=== PATIENT | female | born 1970 | race Caucasian/White ===

== ENCOUNTER 2016-07-04 16:39 | Inpatient (IN) | payer OTHER ==
[~2016-07-04] VITALS: Ht 170.2 cm; Wt 87.5 kg
--- NOTE | 2016-07-04 19:04 | DIAGNOSTIC IMAGING REPORT ---
PROCEDURE: CT ABD/PELVIS WITH CONTRAST CLINICAL INDICATION: ABDOMINAL PAIN TECHNIQUE: 125 ml of Isovue 300 were injected intravenously and axial images were obtained of the entire abdomen and pelvis with sagittal and coronal reformations. COMPARISON: None. FINDINGS: ABDOMEN: Large right and mild left pleural effusions with bibasilar compressive atelectasis. Normal heart size. Liver contour irregularity with large ascites. Portal vein is patent. Spleen measures 14.3 cm. Perigastric varices. Mild anasarca. Two large gallstones, largest 2.1 cm. Pancreas, adrenal glands and right kidney are normal. Mildly enlarged left kidney (13 cm) with delayed nephrogram and left renal hilum soft tissue mass/ cyst inflammatory process with mild left hydronephrosis. There is also a left renal vein filling defect. Normal abdominal aorta. PELVIS: Appendix not clearly identified. Normal uterus. 2.8 cm right and 1.5 cm left ovarian cysts. Normal bladder. 1.4 cm calcification between the bladder and uterus. No suspicious osseous lesions. IMPRESSION: 1. Large right and mild left pleural effusions with bibasilar compressive atelectasis 2. Cirrhosis with large ascites, splenomegaly and perigastric varices 3. Left renal hilum mass/inflammatory process with mild left hydronephrosis, delayed nephrogram and filling defect in the renal vein. Consider a transitional cell neoplasm or adenopathy with left renal vein thrombosis. 4. Cholelithiasis 5. Bilateral ovarian cyst. Recommend pelvic ultrasound 6. Results discussed with Dr. Ingram All CT scans at this facility use dose modulation, iterative reconstruction, and/or weight-based dosing when appropriate to reduce radiation dose to as low as reasonably achievable.
--- NOTE | 2016-07-04 20:23 | DIAGNOSTIC IMAGING REPORT ---
PROCEDURE: US COMPLETE PELVIC W/TRANSVAG INDICATION: Ascites. Assess ovarian mass or cyst. TECHNIQUE: Transabdominal and endovaginal tucker scale and color Doppler sonographic images of the female pelvis were obtained. COMPARISON: Comparison made to CT abdomen pelvis earlier today (07/04/2016). FINDINGS: Study is partially limited due to body habitus. TRANSABDOMINAL SCANS: Uterus is of normal size (7.1 x 3.1 x 3.6 cm). Large amount of ascites. TRANSVAGINAL SCANS: Endometrial thickness is normal (6 mm). Right ovary is of normal size (3.9 cm) with 2.5 cm cyst. Left ovary is of normal size (2.8 cm) with a 1.4 cm cyst. IMPRESSION: 1. Study partially limited due to body habitus and ascites. 2. Bilateral ovarian cysts. While these could represent simple cysts, underlying neoplastic cysts (e.g., cystadenoma, cystadenocarcinoma) are still a possibility. 3. Findings discussed with Dr. Julian Ingram.
--- NOTE | 2016-07-04 21:09 | ED ORDER SUMMARY ---
..... Patient: FABIÁN WILSON OrderSheet [facility] VisitID: [id number] [place] [address] 46y, F Registration Date/Time: 07/04/2016 ORDER SHEET Weight: 72.5 kg (stated) Allergies: None GENERAL ORDERS: CBC w Diff Urgent (17:04 07/04/2016 Vern REYES) (Ack 17:07 PWeirosa maria ER Tech1) (17:19 KPage-Kuchan R.N.) CMP Urgent (17:04 07/04/2016 Vern REYES) (Ack 17:07 PASHAeirosa maria ER Tech1) (17:19 KPamicah-Kuarashn R.N.) UA-Culture if indicated Urgent (17:04 07/04/2016 Vern REYES) (Ack 17:07 PASHAeirosa maria ER Tech1) (17:19 PWeiler ER Tech1) PT with INR Urgent (17:04 07/04/2016 Vern REYES) (Ack 17:07 PASHAeirosa maria ER Tech1) (17:20 KPage-Kuchan R.N.) BNP Urgent (17:04 07/04/2016 Vern REYES) (Ack 17:07 Tabitha ER Tech1) (17:20 KPage-Kuchan R.N.) Urine Drug Screen Urgent (17:04 07/04/2016 Vren REYES) (Ack 17:07 PWeirosa maria ER Tech1) (17:19 PWeiler ER Tech1) Urine Urgent (17:35 07/04/2016 Vern REYES) (Ack 17:40 PWeiler ER Tech1) (17:48 PWeiler ER Tech1) CT Abd/Pel w Cont (No) (see chart) Urgent (18:08 07/04/2016 Vern REYES) (Ack 18:22 PWeirosa maria ER Tech1) (18:44 PWeiler ER Tech1) US Pelvic Complete w Transvag Urgent (19:06 07/04/2016 Vern REYES) (Ack 19:08 PASHAeirosa maria ER Tech1) (21:06 [facility] ER Well Service Floorperson) MEDICATION ORDERS: IV FLUIDS: IV NS : initial bolus none -, then 250 mL/hr for 2h (NOW); Urgent (17:04 07/04/2016 Vern REYES) (17:19 Cindy Zuñiga.NFeli) Dilaudid IV 0.5 mg (HIGH ALERT MEDICATION, NOW) (21:09 07/04/2016 Cindy Zuñiga.N. verbal order read back to Vren REYES) (21:11 Cindy Carney) Zofran IV 4 mg (NOW) (21:10 07/04/2016 Cindy Zuñiga.N. verbal order read back to Vern REYES) (21:11 Cindy Zuñiga.Arlene) ORDER SHEET NOTES: [Electronically signed by Joel Salvador R.N. (22:00 07/04/2016)] [Electronically signed by Julian Ingram MD (23:30 07/04/2016)] [Electronically locked/signed by Joel Salvador R.N. (22:00 07/04/2016)]
--- NOTE | 2016-07-04 21:09 | ED CLINICAL REPORT ---
Clinical Report - Physicians/Mid Levels [facility] [address] [place] [address] 07/04/2016 16:41 Patient: FABIÁN WILSON Time Seen: 17:00. Arrived- By private vehicle. Historian- patient. HISTORY OF PRESENT ILLNESS Chief Complaint: ABDOMINAL PAIN and ABDOMINAL SWELLING. At its maximum, severity described as moderate. When seen in the E.D., severity described as moderate. Modifying factors- worsened by walking, cough and deep breaths. It is described as Pressure-like. No radiation. It is described as generalized in location. (One month of abdominal swelling, one week of increasing pain). Is still present. It was gradual in onset and has been constant. The patient has had loss of appetite. No vomiting. She has had diarrhea (soft not liquid). No additional abdominal pain. Similar symptoms previously: None. Recent medical care: Not recently seen/assessed. REVIEW OF SYSTEMS Last normal menstrual period- May 11 - too light. No contraception. No black stools or stools, hematemesis, pain with urination or urinary frequency. No bloody stools or stools, sore throat or throat or blurred vision. No chest pain, fever, double vision, ear pain or constipation. No diarrhea, nausea, vomiting or difficulty with urination. The patient has had difficulty with urination (dark). No burning or pain with urination. Last bowel movement: today. She has had a headache, cough and cough, difficulty breathing and abdominal pain. She has had difficulty breathing (hard to take a breath because of abdominal fullness.). All systems otherwise negative, except as recorded above. PAST HISTORY PCP: None Ops: None Hosp; at age 16 for "ovary problems" or PID Illness: Psoriasis,. Problems: no known problems. Additional Surgeries: no known surgeries. Medications: None. Allergies: None. SOCIAL HISTORY Former smoker. ADDITIONAL NOTES The nursing notes have been reviewed. PHYSICAL EXAM Vital Signs: 07/04/2016 16:50 BP: 144/101. HR: 99. RR: 21. O2 saturation: 95%. Temp: 97.8 F. Pain level now: 7/10. Appearance: Alert. Patient in mild distress. Eyes: Eyes normal inspection. No scleral icterus. ENT: Pharynx normal. Neck: 2 cm of JVD present at 30 degrees. (collapses on insiration). No hepatojugular reflux present. CVS: Heart sounds normal. Respiratory: No respiratory distress. Breath sounds normal. Abdomen: Mild tenderness diffusely. Bowel sounds normal. No organomegaly. No mass. Distention (marked - feels like ascites). Femoral pulses equal. (No hernias). Skin: Skin warm. Normal skin color. Extremities: Lower extremity edema. Extremities exhibit normal ROM. Neuro: No alteration in mental status. LABS, X-RAYS, AND EKG Abdominal CT: PROCEDURE: CT ABD/PELVIS WITH CONTRAST CLINICAL INDICATION: ABDOMINAL PAIN TECHNIQUE: 125 ml of Isovue 300 were injected intravenously and axial images were obtained of the entire abdomen and pelvis with sagittal and coronal reformations. COMPARISON: None. FINDINGS: ABDOMEN: Large right and mild left pleural effusions with bibasilar compressive atelectasis. Normal heart size. Liver contour irregularity with large ascites. Portal vein is patent. Spleen measures 14.3 cm. Perigastric varices. Mild anasarca. Two large gallstones, largest 2.1 cm. Pancreas, adrenal glands and right kidney are normal. Mildly enlarged left kidney (13 cm) with delayed nephrogram and left renal hilum soft tissue mass/cyst inflammatory process with mild left hydronephrosis. There is also a left renal vein filling defect. Normal abdominal aorta. PELVIS: Appendix not clearly identified. Normal uterus. 2.8 cm right and 1.5 cm left ovarian cysts. Normal bladder. 1.4 cm calcification between the bladder and uterus. No suspicious osseous lesions. IMPRESSION: 1. Large right and mild left pleural effusions with bibasilar compressive atelectasis 2. Cirrhosis with large ascites, splenomegaly and perigastric varices 3. Left renal hilum mass/inflammatory process with mild left hydronephrosis, delayed nephrogram and filling defect in the renal vein. Consider a transitional cell neoplasm or adenopathy with left renal vein thrombosis. 4. Cholelithiasis 5. Bilateral ovarian cyst. Recommend pelvic ultrasound 6. Results discussed with Dr. Ingram All CT scans at this facility use dose modulation, iterative reconstruction, and/or weight-based dosing when appropriate to reduce radiation dose to as low as reasonably achievable. Electronically Final signed by:Flex Jain MD 07/04/2016 7:03:43 PM. Abdominal Sonogram: (PROCEDURE: US COMPLETE PELVIC W/TRANSVAG INDICATION: Ascites. Assess ovarian mass or cyst. TECHNIQUE: Transabdominal and endovaginal tucker scale and color Doppler sonographic images of the female pelvis were obtained. COMPARISON: Comparison made to CT abdomen pelvis earlier today (07/04/2016). FINDINGS: Study is partially limited due to body habitus. TRANSABDOMINAL SCANS: Uterus is of normal size (7.1 x 3.1 x 3.6 cm). Large amount of ascites. TRANSVAGINAL SCANS: Endometrial thickness is normal (6 mm). Right ovary is of normal size (3.9 cm) with 2.5 cm cyst. Left ovary is of normal size (2.8 cm) with a 1.4 cm cyst. IMPRESSION: 1. Study partially limited due to body habitus and ascites. 2. Bilateral ovarian cysts. While these could represent simple cysts, underlying neoplastic cysts (e.g., cystadenoma, cystadenocarcinoma) are still a possibility. 3. Findings discussed with Dr. Julian Ingram. Electronically Final signed by:Adalid Hairston MD 07/04/2016 8:18:39 PM). The study was interpreted by the radiologist and discussed with the radiologist. Laboratory Tests: UA-Culture if indicated: (KEM: 07/04/2016 16:51) ( MsgRcvd 07/04/2016 17:59) Final results Test Result Flag Units (Reference) URINE COLOR DARK YELLOW URINE APPEARANCE CLEAR URINE GLUCOSE NEGATIVE (NEGATIVE) URINE BILIRUBIN ICTOTEST NEGATIVE (NEGATIVE) URINE KETONE TRACE (NEGATIVE) URINE SPECIFIC GRAVITY 1.025 (1.010-1.030) URINE PH 6.5 (5.0-8.0) URINE PROTEIN 3+ (NEGATIVE) URINE UROBILINOGEN 2.0 EU/dL (0.2-1.0) The urobilinogen reagent area may react with interferingsubstances known to react with Humphrey's reagent such asp-aminosalicylic acid and sulfonamides. Atypical colorreactions may be obtained in the presence of highconcentrations of p-aminobenzoic acid. The absence ofurobilinogen cannot be determined with this test. URINE NITRITE NEGATIVE (NEGATIVE) URINE BLOOD 1+ (NEGATIVE) URINE LEUK ESTERASE NEGATIVE (NEGATIVE) URINE RBC 3-5 rbc/hpf (0-1) URINE WBC 10-15 wbc/hpf (0-1) URINE EPITHELIAL CELLS 10-15 EPI/hpf (0-5) URINE BACTERIA MODERATE (2+ TO 3+) (NONE SEEN) URINE COMMENT CULTURE INDICATED 2+ MUCUS1+ AMORPHOUS5-10 Hyaline Casts/l.p.f.URINE CULTURES ARE SET-UP BASED ON THE FOLLOWING CRITERIA:POSITIVE NITRITEPOSITIVE LEUKOCYTE ESTERASEGREATER THAN 10 WHITE BLOOD CELLSMODERATE (2+) OR GREATER BACTERIA Urine: (KEM: 07/04/2016 16:51) ( [facility] 07/04/2016 17:47) Final results Test Result Flag Units (Reference) URINE NEGATIVE CBC w Diff: (KEM: 07/04/2016 17:09) ( [facility] 07/04/2016 17:30) Final results Test Result Flag Units (Reference) WHITE BLOOD COUNT 5.6 K/uL (4.5-11.5) RED BLOOD COUNT 5.18 M/uL (4.00-5.20) HEMOGLOBIN 15.6 gm/dL (12.0-16.0) HEMATOCRIT 47.0 H % (36.0-46.0) MEAN CELL VOLUME 91 fL (80-100) MEAN CORPUSCULAR HGB 30 pg (26-34) MEAN CORPUSCULAR HGB CONC 33 g/dL (31-37) RED CELL DISTRIBUTION WIDTH 13.2 % (11.6-14.8) PLATELET COUNT 213 K/uL (150-400) NEUTROPHIL % 56.5 % (50-75) LYMPH % 31.8 % (25-40) MONO % 10.8 % (3-14) EOSINOPHIL % 0.6 % (0-4) BASOPHIL % 0.3 % (0-2) PT with INR: (KEM: 07/04/2016 17:09) ( [facility] 07/04/2016 17:40) Final results Test Result Flag Units (Reference) INR 0.9 (0.8-1.2) Low Intensity Therapy: INR 1.5-2.0 PT range 18.5-23.1Mod.Intensity Therapy: INR 2.0-3.0 PT range 23.1-31.5High Intensity Therapy: INR 2.5-3.5 PT range 27.4-35.5High Intensity Therapy 2: INR 3.0-4.0 PT range 31.5-39.3 Urine Drug Screen: (KEM: 07/04/2016 16:51) ( [facility] 07/04/2016 18:00) Final results Test Result Flag Units (Reference) AMPHETAMINE/METHAMPHETAMINE POSITIVE H (NEGATIVE) BARBITURATE NEGATIVE (NEGATIVE) BENZODIAZEPINE NEGATIVE (NEGATIVE) CANNABINOID NEGATIVE (NEGATIVE) COCAINE NEGATIVE (NEGATIVE) ECSTASY NEGATIVE (NEGATIVE) METHADONE NEGATIVE (NEGATIVE) OPIATE NEGATIVE (NEGATIVE) The urine drug screen is a qualitative screening test fordrug overdose and abuse. All screen results should beconsidered as presumptive.Drugs screened for are as follows:BenzodiazepinesCocaineAmphetamines/MetamphetaminesTHC (Tetrahydrocannabinol)OpiatesBarbituratesEcstasyMethadonePositive results are unconfirmed. For confirmation, notifythe lab for the specimen to be sent to the reference lab.All confirmations must be performed by a differentmethodology.The ingestion of natural herbal and plant productscontaining Ephedra/Ephedra metabolites can produce in urineone or more substances capable of cross reacting withamphetamine/methamphetamine immunoassays. These testsprovide a preliminary result only. A more specificalternative chemical method must be used to obtain aconfirmed analytical result. BNP: (KEM: 07/04/2016 17:09) ( [facility] 07/04/2016 17:54) Final results Test Result Flag Units (Reference) B-TYPE NATRIURETIC PEPTIDE 37.8 pg/ml (5-100) CMP: (KEM: 07/04/2016 17:09) ( MsgRcvd 07/04/2016 17:47) Final results Test Result Flag Units (Reference) GLUCOSE 112 H mg/dL (70-110) BUN 9 mg/dL (7-18) CREATININE 0.7 mg/dL (0.6-1.3) Estimated GFR >60 mL/min Estimated GFR- >60 mL/min Note: Persistent reduction over 3 months in eGFR<60 mL/min/1.73 m2 defines CKD. Patients with eGFR values>=60 mL/min/1.73 m2 may also have CKD if evidence ofpersistent proteinuria. Additional information may be foundat www.kidney.org. SODIUM 141 mmol/L (136-145) POTASSIUM 4.0 mmol/L (3.5-5.1) CHLORIDE 108 H mmol/L (98-107) CARBON DIOXIDE 26 mmol/L (21-32) CALCIUM 8.3 L mg/dL (8.5-10.1) TOTAL PROTEIN 6.1 L g/dL (6.4-8.2) ALBUMIN 1.6 L g/dL (3.3-5.0) BILIRUBIN, TOTAL 0.2 mg/dL (0.0-1.0) ALKALINE PHOSPHATASE 46 U/L (46-116) AST (SGOT) 51 H U/L (15-37) ALT (SGPT) 35 U/L (12-78) . PROGRESS AND PROCEDURES Course of Care: 18:08 07/04/16. Labs back Pt has marked and new ascites. The pain if from the abdominal fluid. Given the CT liver and esophageal vein findings this could well all be from hepatic cirrhosis however this could be caused by an ovarian neoplasm. Pt has no PCP. She will need thoracentisis and diagnostic paracentesis. She needs admission for symptomatic treatment and resolve the differential diagnosis. I spoke with Dr Sanchez who has seen the patient in the ED. Disposition: Admitted. CLINICAL IMPRESSION ABDOMINAL PAIN WITH ASCITES HEPATIC CIRRHOSIS L RENAL VEIN THROMBOSIS BILATERAL OVARIAN CYSTS R PLEURAL EFFUSION. (Electronically signed by Julian Ingram MD 07/04/2016 23:30)
--- NOTE | 2016-07-04 21:09 | ED ORDER SUMMARY ---
..... Patient: FABIÁN WILSON OrderSheet [facility] VisitID: [id number] [place] [address] 46y, F Registration Date/Time: 07/04/2016 ORDER SHEET Weight: 72.5 kg (stated) Allergies: None GENERAL ORDERS: CBC w Diff Urgent (17:04 07/04/2016 Vern REYES) (Ack 17:07 PWeirosa maria ER Tech1) (17:19 KPage-Kuchan R.N.) CMP Urgent (17:04 07/04/2016 Vern REYES) (Ack 17:07 PASHAeirosa maria ER Tech1) (17:19 KPamicah-Kuarashn R.N.) UA-Culture if indicated Urgent (17:04 07/04/2016 Vern REYES) (Ack 17:07 PASHAeirosa maria ER Tech1) (17:19 PWeiler ER Tech1) PT with INR Urgent (17:04 07/04/2016 Vern REYES) (Ack 17:07 PASHAeirosa maria ER Tech1) (17:20 KPage-Kuchan R.N.) BNP Urgent (17:04 07/04/2016 Vern REYES) (Ack 17:07 Tabitha ER Tech1) (17:20 KPage-Kuchan R.N.) Urine Drug Screen Urgent (17:04 07/04/2016 Vern REYES) (Ack 17:07 PWeirosa maria ER Tech1) (17:19 PWeiler ER Tech1) Urine Urgent (17:35 07/04/2016 Vern REYES) (Ack 17:40 PWeiler ER Tech1) (17:48 PWeiler ER Tech1) CT Abd/Pel w Cont (No) (see chart) Urgent (18:08 07/04/2016 Vern REYES) (Ack 18:22 PWeirosa maria ER Tech1) (18:44 PWeiler ER Tech1) US Pelvic Complete w Transvag Urgent (19:06 07/04/2016 Vern REYES) (Ack 19:08 PASHAeirosa maria ER Tech1) (21:06 [facility] ER Vocational Nurse) MEDICATION ORDERS: IV FLUIDS: IV NS : initial bolus none -, then 250 mL/hr for 2h (NOW); Urgent (17:04 07/04/2016 Vern REYES) (17:19 Cindy Zuñiga.NFeli) Dilaudid IV 0.5 mg (HIGH ALERT MEDICATION, NOW) (21:09 07/04/2016 Cindy Zuñiga.N. verbal order read back to Vern REYES) (21:11 Cindy Carney) Zofran IV 4 mg (NOW) (21:10 07/04/2016 Cindy Zuñiga.N. verbal order read back to Vern REYES) (21:11 Cindy Zuñiga.Arlene) ORDER SHEET NOTES: [Electronically signed by Joel Salvador R.N. (22:00 07/04/2016)] [Electronically signed by Julian Ingram MD (23:30 07/04/2016)] [Electronically locked/signed by Joel Salvador R.N. (22:00 07/04/2016)]
--- NOTE | 2016-07-04 21:09 | ED NURSING NOTES ---
Clinical Report - Nurses [facility] [address] [place] [address] 07/04/2016 16:41 Patient: FABIÁN WILSON TRIAGE Triage time 16:50 Jul 04 2016. Chief Complaint: ABDOMINAL PAIN and (pt reports abd pain for 2 months with increased abd girth making it difficult to eat, drink and take a deep breath, pt also c/o bilat leg swelling that has been onging julito 1 month). Alert. No acute distress. SEPSIS SCREEN: Sepsis Screen. Negative (no infection suspected/documented). --17:02 Joel Salvador R.N. 16:50 07/04/16. BP: 144/101. HR: 99. RR: 21. O2 saturation: 95%. Temp: 97.8 F. Pain level now: 08/14. --17:02 Joel Salvador R.N. Weight: 72.5 kg stated. Height/Length: 67 inches Per Patient. BMI: 25.1. --16:56 Joel Salvador R.N. Medications None. --16:55 Joel Salvador R.N. Medication/allergy information source: the patient. --17:02 Joel Salvador R.N. Allergies None. --16:55 Joel Salvador R.N. History Arrived by private vehicle. Historian: patient. Accompanied by friend. Onset. (2 months ago). Treatment BASKET [employer]ER: (gas-x). PAST MEDICAL HX: Immunizations: status is unknown. Last normal menstrual period- over 1 month ago. SURGERY HX: No history of previous surgery. SOCIAL HX: Former smoker, end date 01/2016. No alcohol use or drug use. No infectious disease exposure. No known contact with a sick individual. ABUSE ASSESSMENT: No report of abuse. SELF HARM ASSESSMENT: A self harm assessment was performed. The patient answered "no" to the question "Do you have thoughts of harming or killing yourself?". FALL RISK ASSESSMENT: Fall risk assessment completed. No fall risk identified. NUTRITIONAL RISK ASSESSMENT: The nutritional risk assessment revealed no deficiencies. FUNCTIONAL ASSESSMENT: Functional assessment: no impairments noted. LEARNING NEEDS ASSESSMENT: The learning needs assessment revealed no barriers. SKIN INTEGRITY ASSESSMENT: Skin integrity risk assessment completed. No skin integrity risk identified. --17:02 Joel Salvador R.N. PROBLEMS: no known problems. ADDITIONAL SURGERIES: no known surgeries. Interventions ID band on patient. To treatment room. --17:02 Joel Salvador R.N. PHYSICAL ASSESSMENT Ambulatory to room. Patient gowned. GENERAL / NEURO / PSYCH: Alert. Oriented X 4. Appears in pain. HEENT: Mucous membranes are pink. CVS: Capillary refill less than 2 seconds. SKIN: Skin is warm and dry. --17:02 Joel Salvador R.N. NURSING PROGRESS NOTES Patient identifiers checked. Call light placed in reach. Side rails up. Bed placed in lowest position. Brakes of bed on. Patient ready for evaluation- chart flagged. Patient waiting for evaluation. --17:02 Joel Salvador R.N. 17:09 07/04/2016 Site #1 started via IV in the right antecubital space with an 20g angiocath; one attempt. Blood drawn: rainbow set. Labeled in the presence of the patient and sent to the lab. Saline lock flushed with 10 mL saline. --17:19 Joel Salvador R.N. 17:14 07/04/2016 Started bag #1 1000 mL IV Fluids IV NS (Saline); at 250 mL/hr via site #1 via IV pump. Allergies verified and confirmed 5 rights. IV patency established. IV site checked: no pain, redness, or swelling. IV flushed thoroughly pre- and post-medication administration. --17:19 Joel Salvador R.N. ( at bedside). --17:29 Joel Salvador R.N. ( explaining to pt lab results and plans for ct). --18:12 Joel Salvador R.N. Call light placed in reach. --18:13 Joel Salvador R.N. 18:12 07/04/16. BP: 135/92. HR: 86. RR: 17. O2 saturation: 97%. Pain level now: 08/14. --18:13 Joel Salvador R.N. 19:41 07/04/16. ( US at bedside). --20:15 Joel Salvador R.N. 21:11 07/04/2016 Dilaudid (HYDROmorphone HCl PF) IVP 0.5 mg given. via site #1. Allergies verified, confirmed 5 rights and sedative warning given to the patient. IV patency established. IV site checked: no pain, redness, or swelling. IV flushed thoroughly pre- and post-medication administration. IVP given by RN. --21:11 Joel Salvador R.N. 21:11 07/04/2016 Zofran (Ondansetron HCl) IVP 4 mg given. via site #1. Allergies verified and confirmed 5 rights. IV patency established. IV site checked: no pain, redness, or swelling. IV flushed thoroughly pre- and post-medication administration. IVP given by RN. --21:11 Joel Salvador R.N. 21:11 07/04/16. BP: 130/92. HR: 94. RR: 17. O2 saturation: 96%. Pain level now: 08/14. --21:14 Joel Salvador R.N. In/out catheterization placed. She tolerated procedure well. Checked patient name and birthdate: patient confirmed. Patient verbalized understanding. Catheterized urine collected with return of yellow-colored urine; sample sent to lab for urinalysis. Specimen labeled in the presence of the patient. ( pt tearful, c/o headache and abd pain, notified with request to give pt something for pain, v/o for dilaudid 0.5mg iv and zofran 4mg ivp.). --21:14 Joel Salvador R.N. Patient waiting for admit bed. --21:14 Joel Salvador R.N. 21:48 07/04/2016 IV Fluids IV NS Discontinued: completed upon admission. Total amount infused: 500 mL. IV patency established. IV site checked: no pain, redness, or swelling. IV flushed thoroughly. --21:58 Joel Salvador R.N. :58 07/04/2016 Dilaudid IVP Response: no adverse reaction pain is improving. Symptoms have improved the patient feels better. --21:58 Joel Salvador R.N. :58 07/04/2016 Zofran IVP Response: no adverse reaction pain is improving. Symptoms have improved the patient feels better. --:58 Joel Salvador R.N. DISPOSITION / DISCHARGE Admitted to Acute Care (21:44 Jul 04 2016). Report was given to a nurse via a phone call. Report included patient's care, treatment, medications, reviewed medication reconcilliation, and condition (including any recent changes or anticipated changes). All questions were answered. Report was acknowledged and care was transferred. (Jensen HAGAN). Patient's personal items include, bagged/tagged. --21:45 Joel Salvador R.N. Transported via stretcher by [facility]. --21:46 Joel Salvador R.N. Locked/Released at 07/04/2016 22:00 by Joel Salvador R.N.
--- NOTE | 2016-07-04 21:47 | Progress Note ---
Subjective General Admission History and Physical Examination admission to the acute care (inpatient) Patient Name: Laurel Spaulding Admission Date: 07/04/2016 Primary Care Provider: No PCP Attending Physician: Edwin Sanchez M.D. Admitting Physician: Edwin Sanchez MD] Consulting General Surgery, Dr. Pitt Code Status: Full Code Room SUBJECTIVE Historian: Patient herself Reliability: Fair Chief Complaint: Shortness of breath Abdominal fullness Expanding abdominal region with discomfort History of Present Illness: The patient is a 46-year-old white female with a unremarkable past medical history presenting to the emergency department with abdominal fullness and abdominal distention, difficulty with breathing, rapid satiety, abdominal pain. Patient was worked up for the abdominal distention through CT imaging and general examination. It was found that patient had ascites in the peritoneum along with a notable pleural effusion. Patient was seen to have multiple cysts on her ovaries. And she was also seen to have poor filling of the right renal vein. Also seen with congestion of the right kidney. Other Labs were relatively unremarkable. Recommendations are for patient to have a paracentesis along with a thoracocentesis. This will be managed as a therapeutic procedure along with evaluation of both fluid content. Patient is admitted for further workup regarding the ascites and pleural effusion. Symptomatic measures will be gained during her hospitalization. Patient is admitted to acute care medicine as an inpatient stay. PAST MEDICAL HISTORY Illnesses: 1. Psoriasis Allergies: 1. NKDA Medications: 1. OTC ibuprofen Advil Surgery: 1. no surgical recollection. Injuries: 1. No known injuries Hospitalizations: 1. Last known Hospitalization at age 15-16 in [facility] FAMILY HISTORY Parents: 1. Father history is not well known 2. Mother, history is not well known Children: 1. [children] Other significant family history: Grandmother diagnosed with breast cancer in her 60s Aunt diagnosed with breast cancer in her 40s SOCIAL HISTORY 1. Marital Status: No ; 17 year relationship with boyfriend. 2. Bahai: unknown. 3. Education: education up to hs. 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 Occupational health exposures: uknown. HABITS 1. Tobacco: Stopped smoking cigarettes 5 months ago. 2. Drugs: History of methamphetamine use last used 2 weeks ago. 3. Alcohol: Social drinking stopped alcohol use sometime ago 4. Caffeine: Unknown HEALTH SUPERVISION Item/Test no health supervision. No primary care provider for many years ADVANCED DIRECTIVES: 1. Living well: None 2. POLST: None 3. 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 Donor card: None REVIEW OF SYSTEMS Remarkable for those things stated in the history of present illness and past medical history. Review of system completed with the following notable findings : ROS Constitutional Denies: Fever, Chills. Eyes Denies: Vision Change. ENT Denies: Nasal Congestion. Respiratory Denies: Wheezing. Cardiovascular Denies: Palpitations. Musculoskeletal Denies: Back Pain. Skin Denies: Jaundice. Physical Exam Vital Signs / I&Os Vital Signs Date Time Temp Pulse Resp B/P Pulse O2 O2 Flow FiO2 Ox Delivery Rate 07/04 2214 97.9 75 19 140/94 96 Room Air General Appearance Oriented X3, Cooperative HEENT EOMI Lungs airway sounds are decreased, bilaterally. No grunting or wheeze no rales Neck Supple, No JVD Cardiovascular Regular rate and rhythm, Normal S1 and S2 Abdomen distended abdomen, tightness, tympanic. Tenderness along the upper quadrant. Fluid wave was not obtainable no demonstrative spider nevi Extremities Normal pulses Skin No Breakdown Psych/Mental Status Mood normal LAB Results Laboratory Tests 07/04 07/04 07/04 1651 1651 1709 Chemistry Plasma Sodium (136 - 145 mmol/L) 141 Plasma Potassium (3.5 - 5.1 mmol/L) 4.0 Plasma Chloride (98 - 107 mmol/L) 108 CO2 (Enzymatic) (21 - 32 mmol/L) 26 BUN (7 - 18 mg/dL) 9 Creatinine (0.6 - 1.3 mg/dL) 0.7 Est GFR ( Amer) (mL/min) >60 Est GFR (Non-Af Amer) (mL/min) >60 Glucose (70 - 110 mg/dL) 112 Plasma Calcium (8.5 - 10.1 mg/dL) 8.3 Total Bilirubin (0.0 - 1.0 mg/dL) 0.2 AST (15 - 37 U/L) 51 ALT (12 - 78 U/L) 35 Alkaline Phosphatase (46 - 116 U/L) 46 Total Protein (6.4 - 8.2 g/dL) 6.1 Albumin (3.3 - 5.0 g/dL) 1.6 Coagulation INR (0.8 - 1.2) 0.9 Hematology WBC (4.5 - 11.5 K/uL) 5.6 RBC (4.00 - 5.20 M/uL) 5.18 Hgb (12.0 - 16.0 gm/dL) 15.6 Hct (36.0 - 46.0 %) 47.0 MCV (80 - 100 fL) 91 MCH (26 - 34 pg) 30 RDW (11.6 - 14.8 %) 13.2 Neut % (Auto) (50 - 75 %) 56.5 Lymph % (Auto) (25 - 40 %) 31.8 [place] % (Auto) (3 - 14 %) 10.8 Eos % (Auto) (0 - 4 %) 0.6 Baso % (Auto) (0 - 2 %) 0.3 Plt Count, EDTA (150 - 400 K/uL) 213 PUBS MCHC (31 - 37 g/dL) 33 Toxicology Urine Opiates Screen (NEGATIVE) NEGATIVE Urine Methadone Screen (NEGATIVE) NEGATIVE Ur Barbiturates Screen (NEGATIVE) NEGATIVE U Amphetamin/Meth Scrn (NEGATIVE) POSITIVE MDMA (Ecstasy) Screen (NEGATIVE) NEGATIVE U Benzodiazepines Scrn (NEGATIVE) NEGATIVE Urine Cocaine Screen (NEGATIVE) NEGATIVE U Cannabinoids Screen (NEGATIVE) NEGATIVE Urines Urine Color DARK YELLOW Urine Appearance CLEAR Urine pH (5.0 - 8.0) 6.5 Ur Specific [place] (1.010 - 1.030) 1.025 Urine Protein (NEGATIVE) 3+ Urine Ketones (NEGATIVE) TRACE Urine Blood (NEGATIVE) 1+ Urine Nitrite (NEGATIVE) NEGATIVE Ur Bilirubin Confirm (NEGATIVE) NEGATIVE Urine Urobilinogen (0.2 - 1.0 EU/dL) 2.0 Ur Leukocyte Esterase (NEGATIVE) NEGATIVE Urine RBC (0 - 1 rbc/hpf) 3-5 Urine WBC (0 - 1 wbc/hpf) 10-15 Ur Epithelial Cells (0 - 5 EPI/hpf) 10-15 Urine Bacteria (NONE SEEN) MODERATE (2+ TO 3+) Urine Glucose (NEGATIVE) NEGATIVE Urine Test NEGATIVE Urine Comment CULTURE INDICATED 07/04 1708 Chemistry B-Natriuretic Peptide (5 - 100 pg/ml) 37.8 Microbiology Date/Time Procedure - Status Source Growth 07/04 1650 Urine Culture - RECD URINE CC Imaging US COMPLETE PELVIC W/TRANSVAG 1. Study partially limited due to body habitus and ascites. 2. Bilateral ovarian cysts. While these could represent simple cysts, underlying neoplastic cysts (e.g., cystadenoma, cystadenocarcinoma) are still a possibility. CT ABD/PELVIS WITH CONTRAST 1. Large right and mild left pleural effusions with bibasilar compressive atelectasis 2. Cirrhosis with large ascites, splenomegaly and perigastric varices 3. Left renal hilum mass/inflammatory process with mild left hydronephrosis, delayed nephrogram and filling defect in the renal vein. Consider a transitional cell neoplasm or adenopathy with left renal vein thrombosis. 4. Cholelithiasis 5. Bilateral ovarian cyst. Recommend pelvic ultrasound Assessment and Plan Problem List 1. Abdominal pain Plan There is a distended abdomen with ascites. Also notable multiple cysts in the ovaries. Other contributing causation could be the renal vein thrombosis and liver cirrhotic changes. Imaging is pending done on pelvis and abdomen. Defining etiologies unclear. Plan is to have a paracentesis; this will include evaluation of the fluid for infection, protein, glucose, cytology etc. Ascites may be consistent with the pleural effusion. On a thoracocentesis guided. Also evaluate fluid. 2. Ascites Plan Ascites in the abdomen. Etiology is not completely clear however there is a notable ovarian cyst, liver cirrhotic changes and congestion of the kidney. Paracentesis both therapeutic and diagnostic. Sodium restricted diet Optimize diuretics once diagnostic ultrasound and carotid ultrasound performed. 3. Pleural effusion, right Plan Some right pleural effusion. Etiology is unclear. Patient has a long smoking history masses not identified in the imaging. Plan on a guided thoracocentesis Evaluate for infection, protein, cholesterol, Gram stain, fluid quantity and quality, cytology. 4. Bilateral ovarian cysts Plan Ovarian cysts have been noted for multiple years. Natural history of the ovarian cyst is not clear. Needing to evaluate the ascites. 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 5. Hepatic cirrhosis Plan Cirrhotic changes in the liver No prior IVD use. He reports of light alcohol use in the past. No historical features of hepatitis. Acute hepatitis panel, ascites will be evaluated following the paracentesis. Ultrasound completed of the abdomen; occluding liver spleen and Doppler studies of the portal system. 6. Thrombosis of left renal vein Plan Etiology of the thrombosis in the renal vein is unclear. There is signs of a congested kidney Watching kidney function evaluate ascites. E&M Codes Admission: Inpt-High/[id number]
[2016-07-04 22:14] VITALS: BP 140/94
--- NOTE | 2016-07-04 23:30 | ED DISCHARGE INSTRUCTIONS ---
Patient: FABIÁN WILSON General Instructions [facility] VisitID: [id number] [address] [place] [address] 46y, F Registration Date/Time: 07/04/2016 ABDOMINAL PAIN WITH ASCITES HEPATIC CIRRHOSIS L RENAL VEIN THROMBOSIS BILATERAL OVARIAN CYSTS R PLEURAL EFFUSION. (Electronically signed by Julian Ingram MD 07/04/2016 23:30)
--- NOTE | 2016-07-04 23:30 | ED MAR SUMMARY ---
..... Medication Administration Record [facility] [address] [place] [address] Patient: FABIÁN WILSON Visit ID: [id number] 46y, F Weight: 72.5 kg Height/Length: 67 in BMI: 25.1 ALLERGIES: None Start 17:14 07/04/2016 Joel Salvador R.N., Stop 21:48 07/04/2016 Joel Salvador R.N. Medication Administered: IV NS (SALINE), Dose: IV Fluids, Rate: 250 mL/hr, Dispensed: 1000 mL bag, Site: #1 right AC. Medication Ordered: IV NS : initial bolus none -, then 250 mL/hr for 2h (NOW); Urgent. Given 21:11 07/04/2016 Joel Salvador R.N. Medication Administered: DILAUDID [IVP] (HYDROMORPHONE HCL PF), Dose: 0.5 mg IVP, Site: #1 right AC. Medication Ordered: Dilaudid IV 0.5 mg (HIGH ALERT MEDICATION, NOW). Given 21:11 07/04/2016 Joel Salvador R.N. Medication Administered: ZOFRAN [IVP] (ONDANSETRON HCL), Dose: 4 mg IVP, Site: #1 right AC. Medication Ordered: Zofran IV 4 mg (NOW).
--- NOTE | 2016-07-04 23:30 | ED MED RECONCILIATION SUMMARY ---
Patient: FABIÁN WILSON Medication Reconciliation Report [facility] VisitID: [id number] [address] [place] [address] 46y, F Registration Date/Time: 07/04/2016 Weight: 72.5 kg Height/Length: 67 in. BMI: 25.1 ALLERGIES: None The patient's Home Medications are listed below: NONE. The source(s) of the original Home Medication information: patient The following Medications were given to the patient in the Emergency Department: IV NS IV Fluids bolus 0, then 250 mL/hr, administered: 07/04/2016 5:14:00 PM Dilaudid [IVP] IVP 0.5 mg, administered: 07/04/2016 9:11:00 PM Zofran [IVP] IVP 4 mg, administered: 07/04/2016 9:11:00 PM The following Medications were prescribed to the patient: None.
--- NOTE | 2016-07-04 23:30 | ED MAR SUMMARY ---
..... Medication Administration Record [facility] [address] [place] [address] Patient: FABIÁN WILSON Visit ID: [id number] 46y, F Weight: 72.5 kg Height/Length: 67 in BMI: 25.1 ALLERGIES: None Start 17:14 07/04/2016 Joel Salvador R.N., Stop 21:48 07/04/2016 Joel Salvador R.N. Medication Administered: IV NS (SALINE), Dose: IV Fluids, Rate: 250 mL/hr, Dispensed: 1000 mL bag, Site: #1 right AC. Medication Ordered: IV NS : initial bolus none -, then 250 mL/hr for 2h (NOW); Urgent. Given 21:11 07/04/2016 Joel Salvador R.N. Medication Administered: DILAUDID [IVP] (HYDROMORPHONE HCL PF), Dose: 0.5 mg IVP, Site: #1 right AC. Medication Ordered: Dilaudid IV 0.5 mg (HIGH ALERT MEDICATION, NOW). Given 21:11 07/04/2016 Joel Salvador R.N. Medication Administered: ZOFRAN [IVP] (ONDANSETRON HCL), Dose: 4 mg IVP, Site: #1 right AC. Medication Ordered: Zofran IV 4 mg (NOW).
--- NOTE | 2016-07-04 23:30 | ED MED RECONCILIATION SUMMARY ---
Patient: FABIÁN WILSON Medication Reconciliation Report [facility] VisitID: [id number] [address] [place] [address] 46y, F Registration Date/Time: 07/04/2016 Weight: 72.5 kg Height/Length: 67 in. BMI: 25.1 ALLERGIES: None The patient's Home Medications are listed below: NONE. The source(s) of the original Home Medication information: patient The following Medications were given to the patient in the Emergency Department: IV NS IV Fluids bolus 0, then 250 mL/hr, administered: 07/04/2016 5:14:00 PM Dilaudid [IVP] IVP 0.5 mg, administered: 07/04/2016 9:11:00 PM Zofran [IVP] IVP 4 mg, administered: 07/04/2016 9:11:00 PM The following Medications were prescribed to the patient: None.
--- NOTE | 2016-07-04 23:30 | ED DISCHARGE INSTRUCTIONS ---
Patient: FABIÁN WILSON General Instructions [facility] VisitID: [id number] [address] [place] [address] 46y, F Registration Date/Time: 07/04/2016 ABDOMINAL PAIN WITH ASCITES HEPATIC CIRRHOSIS L RENAL VEIN THROMBOSIS BILATERAL OVARIAN CYSTS R PLEURAL EFFUSION. (Electronically signed by Julian Ingram MD 07/04/2016 23:30)
[2016-07-05 02:43] VITALS: BP 129/63
--- NOTE | 2016-07-05 06:44 | Progress Note ---
Subjective General Note Date: 07/05/2016 Admission Date: 07/04/2016 Hospital Day: 2 PCP: No PCP Status: Moderate guarded Advanced Directive: Full code Room: 211 46-year-old white female with a unremarkable past medical history presenting to the emergency department with abdominal fullness and abdominal distention; found to be with ascites and pleural effusion. Admitted for observation and to assess the fluid in the belly and chest. Patient did well relatively well overnight. Patient was nothing by mouth felt like she was up most of the night. Patient is not in acute distress or pain and no issues otherwise. Constitutional Denies: Chills, Sweats. Respiratory Other (shortness of breath ). Denies: SOB w/exertion. Cardiovascular Denies: Palpitations, Edema. Gastrointestinal Other (fullness). Physical Exam Vital Signs / I&Os Vital Signs Date Time Temp Pulse Resp B/P Pulse O2 O2 Flow FiO2 Ox Delivery Rate 07/05 0243 98.2 59 16 129/63 98 Room Air 07/05 0029 2.0 07/04 2326 Room Air 07/04 2214 97.9 75 19 140/94 96 Room Air I&O 07/04 0800 07/04 1600 07/05 0000 Intake Total Output Total Balance General Appearance Oriented X3, Cooperative HEENT PERRLA Lungs Clear to auscultation, Normal air movement Neck Supple, No JVD Cardiovascular Regular rate and rhythm, Normal S1 and S2 Abdomen Soft, No tenderness Skin No Breakdown Psych/Mental Status Mood normal LAB Results Laboratory Tests 07/04 07/04 07/04 1651 1651 1709 Chemistry Plasma Sodium (136 - 145 mmol/L) 141 Plasma Potassium (3.5 - 5.1 mmol/L) 4.0 Plasma Chloride (98 - 107 mmol/L) 108 CO2 (Enzymatic) (21 - 32 mmol/L) 26 BUN (7 - 18 mg/dL) 9 Creatinine (0.6 - 1.3 mg/dL) 0.7 Est GFR ( Amer) (mL/min) >60 Est GFR (Non-Af Amer) (mL/min) >60 Glucose (70 - 110 mg/dL) 112 Plasma Calcium (8.5 - 10.1 mg/dL) 8.3 Total Bilirubin (0.0 - 1.0 mg/dL) 0.2 AST (15 - 37 U/L) 51 ALT (12 - 78 U/L) 35 Alkaline Phosphatase (46 - 116 U/L) 46 Total Protein (6.4 - 8.2 g/dL) 6.1 Albumin (3.3 - 5.0 g/dL) 1.6 Coagulation INR (0.8 - 1.2) 0.9 Hematology WBC (4.5 - 11.5 K/uL) 5.6 RBC (4.00 - 5.20 M/uL) 5.18 Hgb (12.0 - 16.0 gm/dL) 15.6 Hct (36.0 - 46.0 %) 47.0 MCV (80 - 100 fL) 91 MCH (26 - 34 pg) 30 RDW (11.6 - 14.8 %) 13.2 Neut % (Auto) (50 - 75 %) 56.5 Lymph % (Auto) (25 - 40 %) 31.8 [place] % (Auto) (3 - 14 %) 10.8 Eos % (Auto) (0 - 4 %) 0.6 Baso % (Auto) (0 - 2 %) 0.3 Plt Count, EDTA (150 - 400 K/uL) 213 PUBS MCHC (31 - 37 g/dL) 33 Toxicology Urine Opiates Screen (NEGATIVE) NEGATIVE Urine Methadone Screen (NEGATIVE) NEGATIVE Ur Barbiturates Screen (NEGATIVE) NEGATIVE U Amphetamin/Meth Scrn (NEGATIVE) POSITIVE MDMA (Ecstasy) Screen (NEGATIVE) NEGATIVE U Benzodiazepines Scrn (NEGATIVE) NEGATIVE Urine Cocaine Screen (NEGATIVE) NEGATIVE U Cannabinoids Screen (NEGATIVE) NEGATIVE Urines Urine Color DARK YELLOW Urine Appearance CLEAR Urine pH (5.0 - 8.0) 6.5 Ur Specific [place] (1.010 - 1.030) 1.025 Urine Protein (NEGATIVE) 3+ Urine Ketones (NEGATIVE) TRACE Urine Blood (NEGATIVE) 1+ Urine Nitrite (NEGATIVE) NEGATIVE Ur Bilirubin Confirm (NEGATIVE) NEGATIVE Urine Urobilinogen (0.2 - 1.0 EU/dL) 2.0 Ur Leukocyte Esterase (NEGATIVE) NEGATIVE Urine RBC (0 - 1 rbc/hpf) 3-5 Urine WBC (0 - 1 wbc/hpf) 10-15 Ur Epithelial Cells (0 - 5 EPI/hpf) 10-15 Urine Bacteria (NONE SEEN) MODERATE (2+ TO 3+) Urine Glucose (NEGATIVE) NEGATIVE Urine Test NEGATIVE Urine Comment CULTURE INDICATED 07/04 07/05 07/05 7062 3800 0081 Chemistry Plasma Sodium (136 - 145 mmol/L) 140 Plasma Potassium (3.5 - 5.1 mmol/L) 4.4 Plasma Chloride (98 - 107 mmol/L) 108 CO2 (Enzymatic) (21 - 32 mmol/L) 26 BUN (7 - 18 mg/dL) 8 Creatinine (0.6 - 1.3 mg/dL) 0.6 Est GFR ( Amer) (mL/min) >60 Est GFR (Non-Af Amer) (mL/min) >60 Glucose (70 - 110 mg/dL) 109 Hemoglobin A1c % (4.5 - 6.2 %) 5.3 Plasma Calcium (8.5 - 10.1 mg/dL) 8.1 Plasma Magnesium (1.8 - 2.4 mg/dL) 1.9 Total Bilirubin (0.0 - 1.0 mg/dL) 0.3 AST (15 - 37 U/L) 45 ALT (12 - 78 U/L) 29 Alkaline Phosphatase (46 - 116 U/L) 39 B-Natriuretic Peptide (5 - 100 pg/ml) 37.8 Total Protein (6.4 - 8.2 g/dL) 5.7 Albumin (3.3 - 5.0 g/dL) 1.5 Triglycerides (30 - 200 mg/dL) 140 Cholesterol (140 - 200 mg/dL) 161 LDL Cholesterol, Calc (mg/dL) 94 HDL Cholesterol (32 - 96 mg/dL) 39 LDL/HDL Ratio 2.4 Cholesterol/HDL Ratio 4.1 Coronary Risk Interp (0.4 - 1.0) Pending Amylase (25 - 115 U/L) 55 Lipase (73 - 393 U/L) 144 Coagulation INR (0.8 - 1.2) 1.0 Hematology WBC (4.5 - 11.5 K/uL) 5.1 RBC (4.00 - 5.20 M/uL) 4.93 Hgb (12.0 - 16.0 gm/dL) 14.8 Hct (36.0 - 46.0 %) 45.1 MCV (80 - 100 fL) 92 MCH (26 - 34 pg) 30 RDW (11.6 - 14.8 %) 13.1 Neut % (Auto) (50 - 75 %) 53.7 Lymph % (Auto) (25 - 40 %) 34.5 [place] % (Auto) (3 - 14 %) 10.6 Eos % (Auto) (0 - 4 %) 0.7 Baso % (Auto) (0 - 2 %) 0.5 Plt Count, EDTA (150 - 400 K/uL) 199 PUBS MCHC (31 - 37 g/dL) 33 Microbiology Date/Time Procedure - Status Source Growth 07/05 UNK MRSA Screen - ORD NASAL 07/04 1651 Urine Culture - RECD URINE CC Assessment and Plan Problem List 1. Ascites Plan Abdominal distention with abdominal pain. Patient was taken in for ultrasound study of the liver and for paracentesis and thoracocentesis. Lymph nodes are also noted; these may need to be assessed at a different time. 2. Abdominal pain Plan Chronic persistent abdominal pain. Associated with the ascites. She will need to be on a salt restricted diet. Cirrhotic changes in the liver. 3. Thrombosis of left renal vein Plan Thrombosis of the left renal vein; not a whole lot to do with this. Likely to be collaterals. The ovary on that and is suspicious for leakage of fluid around the fallopian. 4. Hepatic cirrhosis Plan May be contributing to the ascites. Most likely the ascites is secondary to the ovarian changes. Patient's antidepressants cancer in her 40s. 5. Bilateral ovarian cysts Plan Seen with bilateral ovarian cysts. In the setting of ascitic changes in the abdominal region. Along with pain. There is a cirrhotic liver but most likely related to the ovaries. Cytology will be sent on the ascitic fluid 6. Pleural effusion, right Plan Peers with a definitive effusion on the right side. Paracentesis today Current status: Guarded moderately stable Anticipated discharge date: 1-2 days Anticipated discharge placement: Home Patient care time: Time spent in chart review, patient interview, physical exam, CPOE, and care documentation: 30 minutes Visit to patient today: 2 Complexity of care: Moderate severe E&M Codes Rounding: Inpt-High/[id number]
[2016-07-05 07:15] VITALS: BP 129/78
[2016-07-05 10:47] VITALS: BP 125/82
[2016-07-05 15:47] VITALS: BP 121/70
--- NOTE | 2016-07-05 16:42 | DIAGNOSTIC IMAGING REPORT ---
PROCEDURE: US THORACENTESIS WO TUBE-RIGHT INDICATION: Right pleural effusion. Shortness of breath. COMPARISON: Compared to CT abdomen and pelvis on 07/04/2016. TECHNIQUE: Informed consent was obtained and the patient was advised of the usual risks and complications including infection, bleeding, allergy and pneumothorax. Left lateral decubitus position. Following sterile preparation and 1% lidocaine local anesthetic, ultrasound guidance was utilized to place a 16-gauge angiocatheter in the right posterolateral thorax. 1900 ml of hemorrhagic cloudy fluid was aspirated sent for laboratory studies (Gram stain culture, cell count differential, protein, glucose, LDH, cytology). The patient tolerated the procedure reasonably well and there are no immediate complications. IMPRESSION: 1. Successful ultrasound-guided therapeutic/diagnostic right thoracentesis (1900 ml fluid).
--- NOTE | 2016-07-05 16:44 | DIAGNOSTIC IMAGING REPORT ---
PROCEDURE: US PARACENTESIS INDICATION: Ascites. Distention. COMPARISON: Comparison is made to CT abdomen pelvis on 07/04/2016. TECHNIQUE: Informed consent was obtained and the patient was advised of the usual risks and complications including infection, bleeding and allergy. Supine position. PROCEDURE/FINDINGS: Following sterile preparation and 1% lidocaine local anesthetic, ultrasound guidance was utilized to place a 16-gauge angiocatheter in right lateral abdomen. 2150 ml of pink tinged cloudy fluid was aspirated and sent for laboratory studies as requested (Gram stain culture, cell count differential, protein, glucose, LDH, cytology). The patient tolerated the procedure well and was transferred back to the floor in satisfactory condition. IMPRESSION: 1. Successful ultrasound-guided diagnostic/therapeutic paracentesis (2100 ml fluid).
--- NOTE | 2016-07-05 16:53 | DIAGNOSTIC IMAGING REPORT ---
PROCEDURE: US ABDOMEN ULTRASOUND-LIMITED INDICATION: Gallstone. Liver disease. Assess portal venous flow. TECHNIQUE: Fall scale and color Doppler sonographic images of the abdomen were obtained. COMPARISON: Comparison is made to CT abdomen and pelvis on 07/04/2016. FINDINGS: There is a large 2.6 cm gallstone with mild gallbladder wall thickening (3 mm). Common duct is normal (4 mm). There is evidence of cirrhosis of the liver with nodular surface changes. No evidence of focal abnormality. There is normal hepatopetal flow in the portal vein. There is moderate ascites. Portions of the aorta, pancreas, and right kidney are seen, and are normal. IMPRESSION: 1. Large 2.6 cm gallstone. 2. Mild gallbladder wall thickening is nonspecific and most likely due to ascites or intrinsic liver disease. 3. Cirrhosis of the liver. 4. Normal hepatopetal flow in the portal vein. 5. Moderate ascites.
[2016-07-05 18:56] VITALS: BP 121/82
[2016-07-05 22:44] VITALS: BP 124/83
[2016-07-06 02:56] VITALS: BP 118/73
--- NOTE | 2016-07-06 07:06 | Progress Note ---
Subjective General Note Date: 07/06/2016 Admission Date: 07/04/2016 Hospital Day: 3 PCP: No PCP Status: Moderate guarded Advanced Directive: Full code Room: 211 Reviewed the findings with the patient today. Patient is concerned about liver being diseased. Patient reports that her father passed from liver disease stage. Patient is aware of the concerns with regards to the fluid on her belly. Patient however does feel better since the tap took place. Waiting for identifiable pathology. Discussed the packed that this may be ovarian in origin. Physical Exam Vital Signs / I&Os Vital Signs Date Time Temp Pulse Resp B/P Pulse O2 O2 Flow FiO2 Ox Delivery Rate 07/06 0256 98.8 95 16 118/73 86 Room Air 07/05 2244 98.2 96 16 124/83 92 Room Air 07/05 2100 Room Air 07/05 1856 97.9 93 16 121/82 93 Room Air 0.0 07/05 1547 98.1 93 18 121/70 95 07/05 1047 97.9 81 18 125/82 94 07/05 0717 94 07/05 0715 97.9 83 18 129/78 I&O 07/05 0800 07/05 1600 07/06 0000 Intake Total 532 1503 Output Total 300 200 220 Balance 232 -200 1283 General Appearance Oriented X3, Cooperative HEENT PERRLA Cardiovascular Regular rate and rhythm, Normal S1 and S2 Extremities No edema Neurological Cranial nerves intact Psych/Mental Status Mood normal LAB Results Laboratory Tests 07/05 07/05 07/06 07/06 1430 1430 0625 0625 Chemistry Plasma Sodium Pending Plasma Potassium Pending Plasma Chloride Pending CO2 (Enzymatic) Pending BUN Pending Creatinine Pending Est GFR ( Amer) Pending Est GFR (Non-Af Amer) Pending Glucose Pending Plasma Calcium Pending Total Bilirubin Pending AST Pending ALT Pending Alkaline Phosphatase Pending Total Protein Pending Albumin Pending Coagulation INR (0.8 - 1.2) 1.0 Protein C Antigen Pending Other Body Source Fluid Type RIGHT PLEURAL ASCITES Fluid Color RED PINK Fluid Appearance (CLEAR) CLOUDY CLOUDY Fluid WBC (WBC/mm3) 840 950 Fluid RBC (RBC/mm3) 80386 48956 Fluid Seg Neutrophil % (%) 74 79 Fluid Mononuclear Cell (%) 16 21 Fluid Glucose (mg/dL) 111 108 Fluid Total Protein (g/dl) <2.0 <2.0 Fluid LDH (IU/L) 69 48 Microbiology Date/Time Procedure - Status Source Growth 07/05 143 Anaerobic Culture - RES ABDOMEN 07/05 143 Body Fluid Culture - RES ABDOMEN 07/05 143 Gram Stain - RES ABDOMEN 07/05 143 Anaerobic Culture - RES PLE 07/05 143 Body Fluid Culture - RES PLE 07/05 143 Gram Stain - RES PLE Assessment and Plan Problem List 1. Ascites Plan Abdominal pain which has lessened since the paracentesis. Continue to follow the cytology in laboratory studies from the analysis of the paracentesis fluid 2. Abdominal pain Plan Monitor the girth and changes in pain. Caution with compartment syndromes. 3. Thrombosis of left renal vein Plan Thrombosis of the left renal vein. We'll follow and watch. 4. Hepatic cirrhosis Plan History of hepatic cirrhosis. Monitor. 5. Bilateral ovarian cysts Plan Ovarian cysts notable in the imaging. Awaiting cytology or pathology report before dressing the lymph nodes that are present but still the ovary. The lymph node survey and have to be assessed through biopsy. 6. Pleural effusion, right Plan Pleural fluid taken off. Patient having a much time breathing. Awaiting pathology and cytology from the thoracocentesis and pleural fluid analysis. Current status: Guarded moderately stable Anticipated discharge date: 1-2 days Anticipated discharge placement: Home Patient care time: Time spent in chart review, patient interview, physical exam, CPOE, and care documentation: 30 minutes Visit to patient today: 1 Complexity of care: Moderate severe
[2016-07-06 07:40] VITALS: BP 118/80
[2016-07-06 10:06] VITALS: BP 132/85
[2016-07-06 14:45] VITALS: BP 118/77
[2016-07-06 18:15] VITALS: BP 127/80
[2016-07-06 22:35] VITALS: BP 127/87
[2016-07-07 02:47] VITALS: BP 135/89
[2016-07-07 07:23] VITALS: BP 125/77
[2016-07-07 12:13] VITALS: BP 132/85
--- NOTE | 2016-07-07 17:25 | Progress Note ---
Subjective General Note Date: July 07, 2016 Admission Date: July 04, 2016 Hospital Day: 4 PCP: None Status: Inpatient, ACU Advanced Directive: FULL CODE Room: 211 Admission History: The patient is a 46-year-old white female with a significant past medical history of psoriasis who presented to [facility] emergency department secondary to complaints of shortness of breath and abdominal distention. [facility] ER evaluation was consistent with ascites rule out SBE, cirrhosis, renal vein thrombosis. Secondary to the above, the patient was admitted by Darrin Sanchez M.D. for further evaluation and treatment. For other history present illness, past medical history, family history, social history, review of systems, and admission physical examination please see the patient's history and physical examination and ER visit note in the patient's medical record. Subjective: The patient states she is doing somewhat better today. Less abdominal distention. Persistent abdominal discomfort. Status post paracentesis Patient requests: None Physical Exam Vital Signs / I&Os Vital Signs Date Time Temp Pulse Resp B/P Pulse O2 O2 Flow FiO2 Ox Delivery Rate 07/07 1213 98.4 88 16 132/85 93 Nasal 1.0 Cannula 07/07 1013 1.0 07/07 0723 98.4 89 16 125/77 90 Nasal 1.0 Cannula 07/07 0247 98.2 95 18 135/89 93 Nasal 1.0 Cannula 07/07 0145 Nasal 1.0 Cannula 07/06 2235 98.4 93 18 127/87 94 Nasal 1.0 Cannula 07/06 1815 98.4 88 18 127/80 97 Nasal 1.0 Cannula I&O 07/07 0000 07/06 1600 07/06 0800 Intake Total 170 948 9462 Output Total 350 200 Balance -007 367 4706 General Appearance Alert, Oriented X3, Cooperative, No acute distress Lungs Clear to auscultation, Normal air movement Cardiovascular Regular rate and rhythm, Normal S1 and S2 Abdomen Normal bowel sounds, Soft, mild distention. No significant tenderness. Extremities No cyanosis, No clubbing Neurological Cranial nerves intact, Strength 5/5 x4 ext's, No lateralizing signs Psych/Mental Status Mental status normal, Mood normal LAB Results Laboratory Tests 07/07 09 Chemistry Plasma Sodium (136 - 145 mmol/L) 138 Plasma Potassium (3.5 - 5.1 mmol/L) 4.3 Plasma Chloride (98 - 107 mmol/L) 107 CO2 (Enzymatic) (21 - 32 mmol/L) 23 BUN (7 - 18 mg/dL) 14 Creatinine (0.6 - 1.3 mg/dL) 0.8 Est GFR ( Amer) (mL/min) >60 Est GFR (Non-Af Amer) (mL/min) >60 Glucose (70 - 110 mg/dL) 150 Plasma Calcium (8.5 - 10.1 mg/dL) 8.0 Total Bilirubin (0.0 - 1.0 mg/dL) 0.3 AST (15 - 37 U/L) 52 ALT (12 - 78 U/L) 27 Alkaline Phosphatase (46 - 116 U/L) 37 Total Protein (6.4 - 8.2 g/dL) 5.8 Albumin (3.3 - 5.0 g/dL) 1.4 Hematology WBC (4.5 - 11.5 K/uL) 6.6 RBC (4.00 - 5.20 M/uL) 5.19 Hgb (12.0 - 16.0 gm/dL) 15.7 Hct (36.0 - 46.0 %) 46.8 MCV (80 - 100 fL) 90 MCH (26 - 34 pg) 30 RDW (11.6 - 14.8 %) 13.1 Neut % (Auto) (50 - 75 %) 57.6 Lymph % (Auto) (25 - 40 %) 30.7 [place] % (Auto) (3 - 14 %) 10.4 Eos % (Auto) (0 - 4 %) 0.9 Baso % (Auto) (0 - 2 %) 0.4 Plt Count, EDTA (150 - 400 K/uL) 201 PUBS MCHC (31 - 37 g/dL) 34 Assessment and Plan Problem List 1. Ascites Plan -Patient with findings of ascites possibly related to ovarian CVA/cirrhosis -Await cytology from paracentesis -Probable discharge in a.m. if stable 2. Bilateral ovarian cysts Plan -See above -Await paracentesis results Current status: Fair, unchanged Anticipated discharge date: Anticipated discharge in a.m. Anticipated discharge placement: Home Patient care time: Time spent in chart review, patient interview, physical exam, CPOE, and care documentation: 25 minutes Visit to patient today: 1 Complexity of care: Moderate E&M Codes Rounding: Inpt-Moderate/83016
--- NOTE | 2016-07-07 17:25 | Progress Note ---
Subjective General Note Date: July 07, 2016 Admission Date: July 04, 2016 Hospital Day: 4 PCP: None Status: Inpatient, ACU Advanced Directive: FULL CODE Room: 211 Admission History: The patient is a 46-year-old white female with a significant past medical history of psoriasis who presented to [facility] emergency department secondary to complaints of shortness of breath and abdominal distention. [facility] ER evaluation was consistent with ascites rule out SBE, cirrhosis, renal vein thrombosis. Secondary to the above, the patient was admitted by Darrin Sanchez M.D. for further evaluation and treatment. For other history present illness, past medical history, family history, social history, review of systems, and admission physical examination please see the patient's history and physical examination and ER visit note in the patient's medical record. Subjective: The patient states she is doing somewhat better today. Less abdominal distention. Persistent abdominal discomfort. Status post paracentesis Patient requests: None Physical Exam Vital Signs / I&Os Vital Signs Date Time Temp Pulse Resp B/P Pulse O2 O2 Flow FiO2 Ox Delivery Rate 07/07 1213 98.4 88 16 132/85 93 Nasal 1.0 Cannula 07/07 1013 1.0 07/07 0723 98.4 89 16 125/77 90 Nasal 1.0 Cannula 07/07 0247 98.2 95 18 135/89 93 Nasal 1.0 Cannula 07/07 0145 Nasal 1.0 Cannula 07/06 2235 98.4 93 18 127/87 94 Nasal 1.0 Cannula 07/06 1815 98.4 88 18 127/80 97 Nasal 1.0 Cannula I&O 07/07 0000 07/06 1600 07/06 0800 Intake Total 413 914 6736 Output Total 350 200 Balance -943 963 8812 General Appearance Alert, Oriented X3, Cooperative, No acute distress Lungs Clear to auscultation, Normal air movement Cardiovascular Regular rate and rhythm, Normal S1 and S2 Abdomen Normal bowel sounds, Soft, mild distention. No significant tenderness. Extremities No cyanosis, No clubbing Neurological Cranial nerves intact, Strength 5/5 x4 ext's, No lateralizing signs Psych/Mental Status Mental status normal, Mood normal LAB Results Laboratory Tests 07/07 09 Chemistry Plasma Sodium (136 - 145 mmol/L) 138 Plasma Potassium (3.5 - 5.1 mmol/L) 4.3 Plasma Chloride (98 - 107 mmol/L) 107 CO2 (Enzymatic) (21 - 32 mmol/L) 23 BUN (7 - 18 mg/dL) 14 Creatinine (0.6 - 1.3 mg/dL) 0.8 Est GFR ( Amer) (mL/min) >60 Est GFR (Non-Af Amer) (mL/min) >60 Glucose (70 - 110 mg/dL) 150 Plasma Calcium (8.5 - 10.1 mg/dL) 8.0 Total Bilirubin (0.0 - 1.0 mg/dL) 0.3 AST (15 - 37 U/L) 52 ALT (12 - 78 U/L) 27 Alkaline Phosphatase (46 - 116 U/L) 37 Total Protein (6.4 - 8.2 g/dL) 5.8 Albumin (3.3 - 5.0 g/dL) 1.4 Hematology WBC (4.5 - 11.5 K/uL) 6.6 RBC (4.00 - 5.20 M/uL) 5.19 Hgb (12.0 - 16.0 gm/dL) 15.7 Hct (36.0 - 46.0 %) 46.8 MCV (80 - 100 fL) 90 MCH (26 - 34 pg) 30 RDW (11.6 - 14.8 %) 13.1 Neut % (Auto) (50 - 75 %) 57.6 Lymph % (Auto) (25 - 40 %) 30.7 [place] % (Auto) (3 - 14 %) 10.4 Eos % (Auto) (0 - 4 %) 0.9 Baso % (Auto) (0 - 2 %) 0.4 Plt Count, EDTA (150 - 400 K/uL) 201 PUBS MCHC (31 - 37 g/dL) 34 Assessment and Plan Problem List 1. Ascites Plan -Patient with findings of ascites possibly related to ovarian CVA/cirrhosis -Await cytology from paracentesis -Probable discharge in a.m. if stable 2. Bilateral ovarian cysts Plan -See above -Await paracentesis results Current status: Fair, unchanged Anticipated discharge date: Anticipated discharge in a.m. Anticipated discharge placement: Home Patient care time: Time spent in chart review, patient interview, physical exam, CPOE, and care documentation: 25 minutes Visit to patient today: 1 Complexity of care: Moderate E&M Codes Rounding: Inpt-Moderate/96034
[2016-07-07 18:00] VITALS: BP 117/82
[2016-07-07 22:52] VITALS: BP 126/84
[2016-07-08 02:44] VITALS: BP 124/72
[2016-07-08 07:01] VITALS: BP 128/77
--- NOTE | 2016-07-08 08:08 | Progress Note ---
Subjective General Note Date: July 08, 2016 Admission Date: July 04, 2016 Hospital Day: 5 PCP: None Status: Inpatient, ACU Advanced Directive: FULL CODE Room: 211 Admission History: The patient is a 46-year-old white female with a significant past medical history of psoriasis who presented to [facility] emergency department secondary to complaints of shortness of breath and abdominal distention. [facility] ER evaluation was consistent with ascites rule out SBE, cirrhosis, renal vein thrombosis. Secondary to the above, the patient was admitted by Darrin Sanchez M.D. for further evaluation and treatment. For other history present illness, past medical history, family history, social history, review of systems, and admission physical examination please see the patient's history and physical examination and ER visit note in the patient's medical record. Subjective: Patient states a doing well at this time with no specific complaints. Persistent edema/ascites Patient requests: None Medications and Allergies Medications Current Medications Sig/Nohemi Start time Last Medication Dose Route Stop Time Status Admin Acetaminophen/ 1 TAB Q4H PRN 07/05 1845 AC 07/07 Hydrocodone Bitart PO 1308 Pantoprazole Sodium 40 MG DAILY@07/05 0600 AC 07/08 IV 0611 Ondansetron HCl 4 MG Q6H PRN 07/04 2130 AC 07/07 IV 1308 Sodium Chloride 1,000 ML ASDIRECTED 07/04 2129 AC 07/08 IV 0612 Zolpidem Tartrate 5 MG QHS PRN 07/04 2130 AC 07/07 PO 2010 Allergies Coded Allergies: NKA (07/04/16) Physical Exam Vital Signs / I&Os Vital Signs Date Time Temp Pulse Resp B/P Pulse O2 O2 Flow FiO2 Ox Delivery Rate 07/08 0751 Nasal 2.0 Cannula 07/08 0701 98.8 87 20 128/77 90 Room Air 1.0 / 0244 99.0 91 18 124/72 95 Room Air 1.0 07/07 2252 98.4 88 15 126/84 90 Room Air 07/07 1938 Room Air 07/07 1800 98.1 82 16 117/82 92 Room Air 07/07 1213 98.4 88 16 132/85 93 Nasal 1.0 Cannula 07/07 1013 1.0 07/07 0900 Room Air I&O 07/08 0000 07/07 1600 07/07 0800 Intake Total 9582 548 5184 Output Total 100 100 Balance 7103 678 8118 General Appearance Alert, Oriented X3, Cooperative, No acute distress Lungs scattered rhonchi. Decreased breath sounds on bases Cardiovascular Regular rate and rhythm, Normal S1 and S2 Abdomen Normal bowel sounds, Soft, No tenderness, ascites present, distended Extremities No cyanosis, No clubbing Neurological Cranial nerves intact, No lateralizing signs Psych/Mental Status Mental status normal, Mood normal LAB Results Laboratory Tests 07/07 904 Chemistry Plasma Sodium (136 - 145 mmol/L) 138 Plasma Potassium (3.5 - 5.1 mmol/L) 4.3 Plasma Chloride (98 - 107 mmol/L) 107 CO2 (Enzymatic) (21 - 32 mmol/L) 23 BUN (7 - 18 mg/dL) 14 Creatinine (0.6 - 1.3 mg/dL) 0.8 Est GFR ( Amer) (mL/min) >60 Est GFR (Non-Af Amer) (mL/min) >60 Glucose (70 - 110 mg/dL) 150 Plasma Calcium (8.5 - 10.1 mg/dL) 8.0 Total Bilirubin (0.0 - 1.0 mg/dL) 0.3 AST (15 - 37 U/L) 52 ALT (12 - 78 U/L) 27 Alkaline Phosphatase (46 - 116 U/L) 37 Total Protein (6.4 - 8.2 g/dL) 5.8 Albumin (3.3 - 5.0 g/dL) 1.4 Hematology WBC (4.5 - 11.5 K/uL) 6.6 RBC (4.00 - 5.20 M/uL) 5.19 Hgb (12.0 - 16.0 gm/dL) 15.7 Hct (36.0 - 46.0 %) 46.8 MCV (80 - 100 fL) 90 MCH (26 - 34 pg) 30 RDW (11.6 - 14.8 %) 13.1 Neut % (Auto) (50 - 75 %) 57.6 Lymph % (Auto) (25 - 40 %) 30.7 [place] % (Auto) (3 - 14 %) 10.4 Eos % (Auto) (0 - 4 %) 0.9 Baso % (Auto) (0 - 2 %) 0.4 Plt Count, EDTA (150 - 400 K/uL) 201 PUBS MCHC (31 - 37 g/dL) 34 Assessment and Plan Problem List 1. Ascites Plan -Begin Lasix 20 mg IV twice a day -Aldactone 25 mg by mouth twice a day 2. Hepatic cirrhosis Plan -Check ammonia level -Lasix/Aldactone -Monitor 3. Bilateral ovarian cysts Plan -Significance unclear -Await paracentesis cytology -No clear evidence of ovarian malignancy -Monitor 4. Hepatitis C Status Chronic Onset Date Unknown Plan -Patient with findings of hepatitis C -Associated cirrhosis -Obtain viral load/genotype -Monitor -Outpatient referral to GI for treatment based on above evaluation 5. Pleural effusion, right Plan -See above -Lasix/Aldactone -Monitor Current status: Fair, unchanged Anticipated discharge date: Anticipated discharge 2-3 days with improved status Anticipated discharge placement: Home Patient care time: Time in chart review, patient interview, physical exam, CPOE, and care documentation: 25 mins Visit to patient today: 1 Complexity of care: Moderate E&M Codes Rounding: Inpt-Moderate/00417
--- NOTE | 2016-07-08 08:08 | Progress Note ---
Subjective General Note Date: July 08, 2016 Admission Date: July 04, 2016 Hospital Day: 5 PCP: None Status: Inpatient, ACU Advanced Directive: FULL CODE Room: 211 Admission History: The patient is a 46-year-old white female with a significant past medical history of psoriasis who presented to [facility] emergency department secondary to complaints of shortness of breath and abdominal distention. [facility] ER evaluation was consistent with ascites rule out SBE, cirrhosis, renal vein thrombosis. Secondary to the above, the patient was admitted by Darrin Sanchez M.D. for further evaluation and treatment. For other history present illness, past medical history, family history, social history, review of systems, and admission physical examination please see the patient's history and physical examination and ER visit note in the patient's medical record. Subjective: Patient states a doing well at this time with no specific complaints. Persistent edema/ascites Patient requests: None Medications and Allergies Medications Current Medications Sig/Nohemi Start time Last Medication Dose Route Stop Time Status Admin Acetaminophen/ 1 TAB Q4H PRN 07/05 1845 AC 07/07 Hydrocodone Bitart PO 1308 Pantoprazole Sodium 40 MG DAILY@07/05 0600 AC 07/08 IV 0611 Ondansetron HCl 4 MG Q6H PRN 07/04 2130 AC 07/07 IV 1308 Sodium Chloride 1,000 ML ASDIRECTED 07/04 2129 AC 07/08 IV 0612 Zolpidem Tartrate 5 MG QHS PRN 07/04 2130 AC 07/07 PO 2010 Allergies Coded Allergies: NKA (07/04/16) Physical Exam Vital Signs / I&Os Vital Signs Date Time Temp Pulse Resp B/P Pulse O2 O2 Flow FiO2 Ox Delivery Rate 07/08 0751 Nasal 2.0 Cannula 07/08 0701 98.8 87 20 128/77 90 Room Air 1.0 / 0244 99.0 91 18 124/72 95 Room Air 1.0 07/07 2252 98.4 88 15 126/84 90 Room Air 07/07 1938 Room Air 07/07 1800 98.1 82 16 117/82 92 Room Air 07/07 1213 98.4 88 16 132/85 93 Nasal 1.0 Cannula 07/07 1013 1.0 07/07 0900 Room Air I&O 07/08 0000 07/07 1600 07/07 0800 Intake Total 0162 869 9460 Output Total 100 100 Balance 0024 225 3833 General Appearance Alert, Oriented X3, Cooperative, No acute distress Lungs scattered rhonchi. Decreased breath sounds on bases Cardiovascular Regular rate and rhythm, Normal S1 and S2 Abdomen Normal bowel sounds, Soft, No tenderness, ascites present, distended Extremities No cyanosis, No clubbing Neurological Cranial nerves intact, No lateralizing signs Psych/Mental Status Mental status normal, Mood normal LAB Results Laboratory Tests 07/07 904 Chemistry Plasma Sodium (136 - 145 mmol/L) 138 Plasma Potassium (3.5 - 5.1 mmol/L) 4.3 Plasma Chloride (98 - 107 mmol/L) 107 CO2 (Enzymatic) (21 - 32 mmol/L) 23 BUN (7 - 18 mg/dL) 14 Creatinine (0.6 - 1.3 mg/dL) 0.8 Est GFR ( Amer) (mL/min) >60 Est GFR (Non-Af Amer) (mL/min) >60 Glucose (70 - 110 mg/dL) 150 Plasma Calcium (8.5 - 10.1 mg/dL) 8.0 Total Bilirubin (0.0 - 1.0 mg/dL) 0.3 AST (15 - 37 U/L) 52 ALT (12 - 78 U/L) 27 Alkaline Phosphatase (46 - 116 U/L) 37 Total Protein (6.4 - 8.2 g/dL) 5.8 Albumin (3.3 - 5.0 g/dL) 1.4 Hematology WBC (4.5 - 11.5 K/uL) 6.6 RBC (4.00 - 5.20 M/uL) 5.19 Hgb (12.0 - 16.0 gm/dL) 15.7 Hct (36.0 - 46.0 %) 46.8 MCV (80 - 100 fL) 90 MCH (26 - 34 pg) 30 RDW (11.6 - 14.8 %) 13.1 Neut % (Auto) (50 - 75 %) 57.6 Lymph % (Auto) (25 - 40 %) 30.7 [place] % (Auto) (3 - 14 %) 10.4 Eos % (Auto) (0 - 4 %) 0.9 Baso % (Auto) (0 - 2 %) 0.4 Plt Count, EDTA (150 - 400 K/uL) 201 PUBS MCHC (31 - 37 g/dL) 34 Assessment and Plan Problem List 1. Ascites Plan -Begin Lasix 20 mg IV twice a day -Aldactone 25 mg by mouth twice a day 2. Hepatic cirrhosis Plan -Check ammonia level -Lasix/Aldactone -Monitor 3. Bilateral ovarian cysts Plan -Significance unclear -Await paracentesis cytology -No clear evidence of ovarian malignancy -Monitor 4. Hepatitis C Status Chronic Onset Date Unknown Plan -Patient with findings of hepatitis C -Associated cirrhosis -Obtain viral load/genotype -Monitor -Outpatient referral to GI for treatment based on above evaluation 5. Pleural effusion, right Plan -See above -Lasix/Aldactone -Monitor Current status: Fair, unchanged Anticipated discharge date: Anticipated discharge 2-3 days with improved status Anticipated discharge placement: Home Patient care time: Time in chart review, patient interview, physical exam, CPOE, and care documentation: 25 mins Visit to patient today: 1 Complexity of care: Moderate E&M Codes Rounding: Inpt-Moderate/71867
[2016-07-08 10:09] VITALS: BP 120/80
[2016-07-08 14:24] VITALS: BP 118/74
[2016-07-08 18:16] VITALS: BP 131/75
[2016-07-08 22:38] VITALS: BP 119/75
[2016-07-09 02:33] VITALS: BP 114/71
--- NOTE | 2016-07-09 06:27 | Progress Note ---
Subjective General Note Date: July 09, 2016 Admission Date: July 04, 2016 Hospital Day: 6 PCP: None Status: Inpatient, ACU Advanced Directive: FULL CODE Room: 211 Admission History: The patient is a 46-year-old white female with a significant past medical history of psoriasis who presented to [facility] emergency department secondary to complaints of shortness of breath and abdominal distention. [facility] ER evaluation was consistent with ascites rule out SBE, cirrhosis, renal vein thrombosis. Secondary to the above, the patient was admitted by Darrin Sanchez M.D. for further evaluation and treatment. For other history present illness, past medical history, family history, social history, review of systems, and admission physical examination please see the patient's history and physical examination and ER visit note in the patient's medical record. Subjective: The patient states she is doing well at this time. Persistent abdominal distention. No other specific complaints at this time Patient requests: None Medications and Allergies Medications Current Medications Sig/Nohemi Start time Last Medication Dose Route Stop Time Status Admin Furosemide 20 MG BID 07/08 1230 AC 07/08 IV 3 Spironolactone 25 MG BID 07/08 1230 AC 07/08 PO 203 Acetaminophen/ 1 TAB Q4H PRN 07/05 1845 AC 07/08 Hydrocodone Bitart PO 193 Pantoprazole Sodium 40 MG DAILY@00 07/05 0600 AC 07/09 IV 0535 Ondansetron HCl 4 MG Q6H PRN 07/04 2130 AC 07/07 IV 1308 Zolpidem Tartrate 5 MG QHS PRN 07/04 2130 AC 07/07 PO 2010 Allergies Coded Allergies: NKA (07/04/16) Physical Exam Vital Signs / I&Os Vital Signs Date Time Temp Pulse Resp B/P Pulse O2 O2 Flow FiO2 Ox Delivery Rate 07/09 0233 98.6 77 14 114/71 93 Nasal 1.0 Cannula 07/08 2238 98.4 83 15 119/75 90 Room Air / 1925 0.0 / 1816 98.8 88 20 131/75 96 Room Air 0.0 / 1424 99.0 83 20 118/74 94 Room Air 0.0 / 1009 99.3 87 20 120/80 93 Nasal 2.0 Cannula 07/08 0751 Nasal 2.0 Cannula / 0701 98.8 87 20 128/77 90 Room Air 1.0 I&O / 0000 06/ 1600 06/03 0800 Intake Total 120 240 985 Output Total Balance 120 240 985 General Appearance Alert, Oriented X3, Cooperative, No acute distress Lungs Scattered rhonchi, decreased breath sounds bases Cardiovascular Regular rate and rhythm, Normal S1 and S2 Abdomen Normal bowel sounds, Soft, distended, ascites present Extremities No cyanosis, No clubbing Neurological Cranial nerves intact, No lateralizing signs Psych/Mental Status Mental status normal, Mood normal Assessment and Plan Problem List 1. Hepatic cirrhosis Plan -Patient with findings of cirrhosis most likely secondary to hepatitis C -Lasix, Aldactone -Ammonia level borderline elevated at 34 without significant neurological symptomatology -Monitor -Possible discharge in a.m. with stable diuresis 2. Hepatitis C Status Chronic Onset Date Unknown Plan -See above -Hepatitis C viral load -Outpatient referral to gastroenterology for hepatitis C treatment 3. Bilateral ovarian cysts Plan -Monitor -No clear evidence of upper neoplasm -Await paracentesis cytology -Monitor 4. Ascites Plan -See above -Lasix/Aldactone -Monitor diuresis/ascites Current status: Fair, improved Anticipated discharge date: Anticipated discharge in a.m. Anticipated discharge placement: Home Patient care time: Time in chart review, patient interview, physical exam, CPOE, and care documentation: 25 mins Visit to patient today: 1 Complexity of care: Moderate DVT prophylaxis: SCD E&M Codes Rounding: Inpt-Moderate/[id number]
[2016-07-09 07:14] VITALS: BP 113/66
[2016-07-09 10:47] VITALS: BP 128/67
[2016-07-09 14:27] VITALS: BP 115/74
[2016-07-09 19:29] VITALS: BP 128/81
[2016-07-09 22:25] VITALS: BP 122/77
[2016-07-10 02:18] VITALS: BP 120/74
[2016-07-10 07:14] VITALS: BP 116/76
[2016-07-10 10:52] VITALS: BP 123/76
--- NOTE | 2016-07-10 12:25 | Provider's Discharge Care Plan ---
Problem, Goal, Plan Problem List 1. Ascites Instructions: - decrease fluid intake - follow up with community health - take meds as prescribed 2. Hepatic cirrhosis Instructions: - follow up in community health 3. Hepatitis C
[2016-07-10] MEDS ORDERED: SPIRONOLACTONE25 MG PO (12:26)
--- NOTE | 2016-07-26 16:55 | Discharge Summary ---
Discharge Summary Report Admit Date 07/04/16 Discharge Date 07/10/16 Admission Diagnosis adbominal distention, liver disease, ovarian cyst Discharge Diagnosis abdominal ascites, liver cirrhosis, and ovarian cyst Brief History please refer to admission H&P Hospital Course Patient was admitted for abdominal distention and pain. Patient upon admission was seen to have an ovarian cyst. Patient was initially worked up for ovarian malignancy possibilities. Workup was sent and fluid was analyzed. No results were obtained initially. Patient was additionally seen to have liver cirrhosis. Patient was diuresed in order to alleviate the abdominal swelling. Patient had good results and further information was obtained for patient's liver cirrhosis. It was found that patient has an ongoing workup in process. Once patient was comfortable with the degree of abdominal distention of the amount of diuresis arrangements were made for the patient be discharged. Patient will be following up with her internal medicine/gastroenterology Dr. She will continue with home diuresis for the time being. She will call back for the results of the ovarian malignancy workup. Patient was explained all her hospital course and she understands what needs to be done. 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
== END 2016-07-10 13:15 | disposition home or self-care (01) ==
LOC: ED SRH 16:39 → TRANS SRH 20:35 → ACUTE2 SRH 22:00
PROVIDERS: ADMIT Family Medicine
PROC: 0W9G3ZZ Drainage of Peritoneal Cavity, Percutaneous Approach (ICD-10-PCS; principal; 2016-07-05)
PROC: 0W993ZX Drainage of Right Pleural Cavity, Percutaneous Approach, Diagnostic (ICD-10-PCS; principal; 2016-07-05)
DX: K74.69 Other cirrhosis of liver (principal); B18.2 Chronic viral hepatitis C; R18.8 Other ascites; J90 Pleural effusion, not elsewhere classified; I82.3 Embolism and thrombosis of renal vein; N83.202 Unspecified ovarian cyst, left side; N83.201 Unspecified ovarian cyst, right side

== ENCOUNTER 2016-07-20 13:24 | Outpatient (CLI) | payer OTHER ==
[~2016-07-20 13:24] MED LIST: SPIRONOLACTONE25 MG PO
--- NOTE | 2016-07-20 17:04 | DIAGNOSTIC IMAGING REPORT ---
PROCEDURE: XR CHEST 2 VIEW INDICATION: S/P THORACENTESIS TECHNIQUE: Two views. COMPARISON: None. Correlation made to abdomen pelvis 07/04/2016 FINDINGS: The heart size is partially obscured by bibasilar opacities. Mediastinum is normal. No central venous congestion. Moderate to large right, and small to moderate left pleural effusions are present. There is fluid in the right minor fissure. The upper lungs are normally aerated. Nonspecific nodularity is seen laterally in the right axillary region on the frontal view. Intact osseous structures. IMPRESSION: 1. Reaccumulation of bilateral pleural effusions, right larger than left, probably due to liver disease. 2. Nonspecific nodular densities seen laterally in the right axillary region. Likely related to pleural fluid or potentially infectious/inflammatory. Follow up radiograph in 4 weeks is recommended.
== END 2016-07-20 23:00 | disposition home or self-care (01) ==
LOC: XR SRH 13:24
DX: J90 Pleural effusion, not elsewhere classified (principal); Z98.890 Other specified postprocedural states